=== PATIENT | male | born 1980 | race Caucasian/White ===

== ENCOUNTER 2016-10-22 18:39 | Emergency (ER) | payer SELFPAY ==
[~2016-10-22] VITALS: Ht 165.1 cm; Wt 61.0 kg
[2016-10-22 18:43] VITALS: BP 117/76; PULSE 98; RESP 16; TEMP 98.2; O2SAT 98
--- NOTE | 2016-10-22 19:08 | PD ---
HPI Chief Complaint: Laceration/Skin Injury Time Seen by Provider: 18:56 Travel History International Travel<30 days: Yes Contact w/Intl Traveler<30days: Yes Name of Country Traveled to: [facility] Traveled to known affect area: No History of Present Illness HPI 36-year-old male presents to the emergency room for evaluation of a laceration to his left lower extremity that occurred just prior to arrival. Patient was starting the [employer] with a brand-new chain when he accidentally touched his leg. Laceration is just above the left knee. He applied pressure and came to the emergency room. Last tetanus shot was less than 5 years ago. PFSH Past Medical History Hx Anticoagulant Therapy: No Diabetes: No Diminished Hearing: No Tetanus Vaccination: < 5 Years Influenza Vaccination: No Past Surgical History Other Surgery: Yes (RIGHT INGUINAL HERNIA REPAIR) Social History Alcohol Use: Yes (rare) Tobacco Use: Yes (2-3 PPD) Substance Use: No Allergies-Medications (Allergen,Severity, Reaction): Coded Allergies: No Known Allergies (Unverified , 10/22/16) Reported Meds & Prescriptions Reported Meds & Active Scripts Active No Active Prescriptions or Reported Medications Review of Systems Except as stated in HPI: all other systems reviewed are Neg Physical Exam Narrative GENERAL: Well-nourished, well-developed male in no acute distress. Afebrile. Ambulatory. SKIN: Focused skin assessment warm/dry. There is a 2 cm superficial laceration to the left, anterior, distal thigh. No surrounding erythema. No evidence of infection. Nonbleeding. HEAD: Normocephalic. EYES: No scleral icterus. No injection or drainage. NECK: Supple, trachea midline. No JVD or lymphadenopathy. CARDIOVASCULAR: Regular rate and rhythm without murmurs, gallops, or rubs. RESPIRATORY: Breath sounds equal bilaterally. No accessory muscle use. PSYCHIATRIC: No delusional thought processes. No hallucinations. Data Data Last Documented VS Vital Signs Date Time Temp Pulse Resp B/P Pulse Ox O2 Delivery O2 Flow Rate FiO2 10/22/16 18:43 98.2 98 16 117/76 98 MDM Medical Decision Making Medical Screen Exam Complete: Yes Emergency Medical Condition: Yes Medical Record Reviewed: Yes Differential Diagnosis Laceration, abrasion, contusion Narrative Course 36-year-old male presents to the emergency room for evaluation of laceration to his left distal thigh that occurred just prior to arrival. Patient accidentally hit himself with a brand-new chainsaw blade. Tetanus is up-to- date. Physical exam reveals a very superficial 2 cm laceration to the left anterior, distal thigh. It can easily be repaired with glue and Steri-Strips. Area was thoroughly cleansed and then repaired. Patient was discharged with wound care instructions and told to follow-up with a primary care physician or return for worsening symptoms. He understands and agrees to plan. Diagnosis Primary Impression: Laceration of left leg Qualified Code: S81.812A - Laceration of left leg, initial encounter Referrals: Primary Care Physician Patient Instructions: General Instructions, Laceration (ED), Skin Adhesive Care (ED) Additional Instructions: Keep wound clean and dry. Apply triple antibiotic ointment when the glue and Steri-Strips fall off. Follow-up with a primary care physician as needed. Return for worsening symptoms. Scripts No Active Prescriptions or Reported Meds Disposition: 01 DISCHARGE HOME Condition: Stable Sara Landis Oct 22, 2016 19:08
== END 2016-10-22 19:19 | disposition home or self-care (01) ==
LOC: PHEFT 18:39
DX: S71.112A Laceration without foreign body, left thigh, initial encounter (principal); F17.210 Nicotine dependence, cigarettes, uncomplicated; W29.3XXA Contact with powered garden and outdoor hand tools and machinery, initial encounter; Y93.89 Activity, other specified; Y92.9 Unspecified place or not applicable; Y99.8 Other external cause status
CPT/HCPCS: 12001